=== PATIENT | female | born 1990 | race Caucasian/White ===

== ENCOUNTER 2018-02-07 13:00 | Observation (INO) | payer OTHER ==
[~2018-02-07] VITALS: Ht 157.5 cm; Wt 73.4 kg
[2018-02-07 15:17] VITALS: BP 115/64; PULSE 78; TEMP 98.1
[2018-02-07] MEDS ORDERED: NATURAL COD LIV1 SGL PO (15:28)
[2018-02-07 16:32] LABS: TROPONIN-I 6 HR POST INITIAL 0.294 ng/mL (0.000-0.034)
[2018-02-07 16:50] VITALS: BP 122/60; PULSE 83; TEMP 98.2
[2018-02-07 20:00] VITALS: BP 106/56; PULSE 79; TEMP 98.4
[2018-02-08] VITALS: BP 103/64; PULSE 70; TEMP 98.1
[2018-02-08 04:00] VITALS: BP 107/60; PULSE 67; TEMP 98.1
[2018-02-08 04:22] LABS: BASO % 0.4 % (0.0-2.0); EOS # 0.1 (0.0-0.7); EOS % 0.9 % (0-4.0); GRAN # 5.5 (1.4-6.5); GRAN % 60.9 % (42.2-75.2); LYMPH # 2.8 (1.2-3.4); LYMPH % 30.3 % (20.0-51.0); MEAN CELL VOLUME 91 fl (80.0-100.0); MEAN CORPUSCULAR HEMOGLOBIN 31 pg (27.0-31.0); MEAN CORPUSCULAR HGB CONC 34 g/dl (33.0-37.0); MEAN PLATELET VOLUME 9.6 fl (7.4-10.4); MONO # 0.7 (0.1-0.6); MONO % 7.3 % (1.7-9.3); PLATELET COUNT 199 K/mm3 (130-400); RED BLOOD COUNT 4.17 M/mm3 (4.10-5.30); REDCELL DISTRIBUTION WIDTH-CV 12.5 % (11.5-14.5)
[2018-02-08 04:38] LABS: CALCIUM 7.9 mg/dL (8.4-10.2); CREATININE, serum 0.76 mg/dL (0.52-1.25); POTASSIUM 3.6 mmol/L (3.4-5.0)
[2018-02-08 07:27] VITALS: BP 105/42; PULSE 67
== END 2018-02-08 18:00 | disposition home or self-care (01) ==
LOC: SURG 15:00
PROVIDERS: Internal Medicine
DX: R55 Syncope and collapse (principal); M62.82 Rhabdomyolysis; Z91.018 Allergy to other foods; Z82.49 Family history of ischemic heart disease and other diseases of the circulatory system; Z80.3 Family history of malignant neoplasm of breast; Z80.1 Family history of malignant neoplasm of trachea, bronchus and lung
CPT/HCPCS: G0378; G0379; J1644; J7030